=== PATIENT | male | born 1960 | race Caucasian/White ===

== ENCOUNTER 2016-08-25 11:34 | Inpatient (IN) | payer OTHER ==
[2016-08-25] VITALS (14 sets, daily range): BP systolic 111–126; BP diastolic 51–93
[~2016-08-25] VITALS: Ht 172.7 cm; Wt 87.9 kg
[~2016-08-25 11:34] MED LIST: Motrin PO
[2016-08-25 11:51] LABS: HEMATOCRIT 41.3 % (38.0-50.0); MCH 28.3 PG (29.0-34.0); MCHC 33.9 G/DL (30.0-36.0); MCV 83.4 FL (86-99); MEAN PLAT.VOLUME 9.1 uM^3 (9.0-12.4); PLATELET COUNT 321 K/uL (156-360); RBC DIS.WIDTH-CV 13.4 % (11.8-14.6); RBC DIS.WIDTH-SD 39.9 % (39-53); RED BLOOD COUNT 4.95 M/uL (4.00-5.50); WHITE BLOOD COUNT 10.1 K/uL (4.1-10.2)
[2016-08-25 11:54] LABS: BASOPHIL COUNT 0.1 K/uL (0-0.1); EOSINOPHIL (%) 1.8 % (0-5); EOSINOPHIL COUNT 0.2 K/uL (0-0.3); IMMATURE GRANULOCYTE (%) 0.3 % (0.0-0.7); IMMATURE GRANULOCYTE COUNT 0.3 K/uL; LYMPHOCYTE COUNT 3.2 K/uL (1.0-2.8); MONOCYTE (%) 8.6 % (3-12); MONOCYTE COUNT 0.9 K/uL (0-0.8); NEUTROPHIL (%) 56.4 % (45-76); NEUTROPHIL COUNT 5.7 K/uL (1.8-6.4)
[2016-08-25 12:01] LABS: INTER. NORMALIZED RATIO 1.1; PROTHROMBIN TIME 10.8 (9.2-11.2); PTT 24.6 (25-32)
[2016-08-25 12:03] LABS: AMYLASE 72 IU/L (1-118); CHLORIDE 108 mEq/L (99-109); POTASSIUM 4.3 mEq/L (3.7-5.4); SODIUM 140 mEq/L (136-147)
[2016-08-25 12:05] LABS: GLUCOSE 175 mg/dL (70-99)
[2016-08-25 12:06] LABS: ANION GAP 10 MEQ/L (2-14)
[2016-08-25 12:08] LABS: SERUM ETHYL ALCOHOL < 10 mg/dL
[2016-08-25 12:09] LABS: GFR ESTIMATE (CALCULATED) > 59 mL/min/; UREA NITROGEN (BUN) 18 mg/dL (9-23)
[2016-08-25 12:12] LABS: LIPASE 11 U/L (1.0-51.0); TROP-I INTERPRETATION NEGATIVE; TROPONIN-I < 0.01 ng/mL (0.0-0.30)
[2016-08-25 15:40] LABS: EOSINOPHIL (%) 0.1 % (0-5); IMMATURE GRANULOCYTE (%) 0.3 % (0.0-0.7); LYMPHOCYTE COUNT 1.1 K/uL (1.0-2.8); MCHC 32.6 G/DL (30.0-36.0); MEAN PLAT.VOLUME 9.3 uM^3 (9.0-12.4); MONOCYTE (%) 4.1 % (3-12); MONOCYTE COUNT 0.6 K/uL (0-0.8); NEUTROPHIL (%) 88.3 % (45-76); NEUTROPHIL COUNT 13.3 K/uL (1.8-6.4); PLATELET COUNT 245 K/uL (156-360); RBC DIS.WIDTH-CV 13.4 % (11.8-14.6); RBC DIS.WIDTH-SD 40.6 % (39-53)
[2016-08-25 15:48] LABS: BASE EXCESS -1.5 mEq/L (-3 to +3); BICARBONATE 24.3 mEq/L (22-26); CARBOXY HGB 1.5 % (0-5); COMMENTS - BLOOD GASES +C; DEVICE PB840; METHEMOGLOBIN 1.3 % (0-1.5); PCO2 44 mm Hg (35-45); PO2 131 mm Hg (80-100); SITE LR +A; pH 7.35 (7.35-7.45)
[2016-08-25 15:49] LABS: ANION GAP 7 MEQ/L (2-14); CHLORIDE 109 MEQ/L (99-109); MAGNESIUM 2.2 mg/dl (1.3-2.7); POTASSIUM 4.8 MEQ/L (3.7-5.4); SAMPLE HEMOLYSIS CHECK 0; SAMPLE ICTERIC CHECK 0; SAMPLE LIPEMIA CHECK 0; SODIUM 137 MEQ/L (136-147)
[2016-08-25 15:49] LABS: FI02 50 %; MECHANICAL RATE 14 resp/min; MODE AC; PEEP 5 CM/H20; TIDAL VOLUME 490 ML; TOTAL RESP RATE 14 resp/min
[2016-08-25 15:55] LABS: GFR ESTIMATE (CALCULATED) > 59 mL/min/; GLUCOSE 115 mg/dL (70-99); UREA NITROGEN (BUN) 15 mg/dL (9-23)
[2016-08-25 16:21] LABS: METH RESISTANT S AUREUS PCR NEGATIVE (NEGATIVE)
[2016-08-25 16:28] LABS: PROBE CHECK PASS; SPECIMEN PROCESSING CONTROL PASS
[2016-08-25 16:54] LABS: COLOR RED ((YELLOW))
[2016-08-25 16:57] LABS: ADD MIUA? YES; BILIRUBIN NEGATIVE; BLOOD LARGE; GLUCOSE (STRIP) NEGATIVE; KETONES NEGATIVE; NITRITE NEGATIVE; PROTEIN (STRIP) 30; UROBILINOGEN 0.2 MG/DL (0.2-1.0)
[2016-08-25 17:06] LABS: RED BLOOD CELLS TNTC /HPF (0-5); WHITE BLOOD CELLS 0-5 /HPF (0-5)
[2016-08-25 17:07] LABS: BACTERIA NONE SEEN /HPF; CASTS NONE SEEN /LPF; CRYSTALS NONE SEEN; EPITHELIAL CELLS NONE SEEN /HPF; MUCUS NONE SEEN /LPF; UCUL ADDED? NO
[2016-08-25 17:25] LABS: AMPHETAMINES QUANT VALUE 0 NG/ML; BARBITUATES QUANT VALUE 0 NG/ML; BENZODIAZEPINES, URINE SCREEN POSITIVE (200 ng/mL); PHENCYCLIDINE QUANT VALUE 0 NG/ML
[2016-08-25 17:39] LABS: POINT-OF-CARE METER ID UU14162636
[2016-08-25 18:33] LABS: CK-MB 244.9 ng/mL (0.0-4.9)
[2016-08-25] MEDS ORDERED: ALEVE220 MG PO (18:41)
[2016-08-25 18:58] LABS: TROP-I INTERPRETATION POSITIVE; TROPONIN-I 48.53 ng/mL (0.0-0.30)
[2016-08-25 19:58] LABS: HEMATOCRIT 41.1 % (38.0-50.0); MCH 26.9 PG (29.0-34.0); MCHC 32.1 G/DL (30.0-36.0); MCV 83.7 FL (86-99); MEAN PLAT.VOLUME 9.3 uM^3 (9.0-12.4); PLATELET COUNT 264 K/uL (156-360); RBC DIS.WIDTH-CV 13.6 % (11.8-14.6); RED BLOOD COUNT 4.91 M/uL (4.00-5.50); WHITE BLOOD COUNT 14.5 K/uL (4.1-10.2)
[2016-08-25 20:14] LABS: CREATINE KINASE 1657 IU/L (1-294); TOTAL CK 1657 IU/L (1-294)
[2016-08-25 23:50] LABS: POINT-OF-CARE METER ID UU14162636
[2016-08-26] VITALS (16 sets, daily range): BP systolic 98–137; BP diastolic 68–93
[2016-08-26 00:42] LABS: HEMATOCRIT 38.4 % (38.0-50.0); MCV 82.9 FL (86-99)
[2016-08-26 00:59] LABS: TOTAL CK 1995 IU/L (1-294)
[2016-08-26 01:07] LABS: CK-MB 202.6 ng/mL (0.0-4.9)
[2016-08-26 01:18] LABS: CREATINE KINASE 1995 IU/L (1-294)
[2016-08-26 01:18] LABS: TROP-I INTERPRETATION POSITIVE; TROPONIN-I 42.02 ng/mL (0.0-0.30)
[2016-08-26 06:23] LABS: TROP-I INTERPRETATION POSITIVE; TROPONIN-I 40.29 ng/mL (0.0-0.30)
[2016-08-26 06:25] LABS: DELETE MACHINE DIFF? YES
[2016-08-26 06:53] LABS: ABS NEUTROPHIL COUNT 12.33; ANISOCYTOSIS OCC; CK-MB 168.3 ng/mL (0.0-4.9); HEMATOCRIT 39.2 % (38.0-50.0); MCH 27.1 PG (29.0-34.0); MCHC 32.4 G/DL (30.0-36.0); MCV 83.6 FL (86-99); MEAN PLAT.VOLUME 9.7 uM^3 (9.0-12.4); PLAT.SUFFICIENCY ADEQUATE; PLATELET COUNT 269 K/uL (156-360); RBC DIS.WIDTH-CV 13.8 % (11.8-14.6); RBC DIS.WIDTH-SD 41.3 % (39-53); RED BLOOD COUNT 4.69 M/uL (4.00-5.50); USER ID CL
[2016-08-26 07:36] LABS: ANION GAP 9 MEQ/L (2-14); CHLORIDE 107 MEQ/L (99-109); GFR ESTIMATE (CALCULATED) > 59 mL/min/; GLUCOSE 154 mg/dL (70-99); HDL CHOLESTEROL 33 MG/DL (Desirable>=40); LDL CHOLESTEROL 148 mg/dL (Desirable<100); NON-HDL CHOLESTEROL 156 mg/dL (Desirable<160); POTASSIUM 4.3 MEQ/L (3.7-5.4); SAMPLE HEMOLYSIS CHECK 0; SAMPLE ICTERIC CHECK 0; SAMPLE LIPEMIA CHECK 0; SODIUM 136 MEQ/L (136-147); TOTAL CHOLESTEROL 189 mg/dL (Desirable<200); TOTAL CK 1351 IU/L (1-294); TRIGLYCERIDES 40 MG/DL (Normal: <150); UREA NITROGEN (BUN) 12 mg/dL (9-23)
[2016-08-26 07:38] LABS: CREATINE KINASE 1351 IU/L (1-294)
[2016-08-26 07:53] LABS: Estimated Average Glucose 123 mg/dL (70-123); HEMOGLOBIN A1c (GLYCOHEMOGLOB) 5.9 % HGB (Below 5.7)
[2016-08-26 12:29] LABS: POINT-OF-CARE METER ID UU14162636
[2016-08-26 13:25] LABS: TROP-I INTERPRETATION POSITIVE; TROPONIN-I 28.77 ng/mL (0.0-0.30)
[2016-08-26 17:36] LABS: POINT-OF-CARE METER ID UU13113748
[2016-08-27 00:10] VITALS: BP 101/68
[2016-08-27 04:08] VITALS: BP 105/70
[2016-08-27 06:08] LABS: POINT-OF-CARE METER ID UU13113781
[2016-08-27 07:20] VITALS: BP 110/80
[2016-08-27 07:47] LABS: HEMATOCRIT 41.3 % (38.0-50.0); MCH 26.9 PG (29.0-34.0); MCV 84.3 FL (86-99); MEAN PLAT.VOLUME 9.7 uM^3 (9.0-12.4); PLATELET COUNT 261 K/uL (156-360); RBC DIS.WIDTH-CV 13.7 % (11.8-14.6); RBC DIS.WIDTH-SD 41.9 % (39-53); WHITE BLOOD COUNT 12.6 K/uL (4.1-10.2)
[2016-08-27 07:56] LABS: ANION GAP 10 MEQ/L (2-14); CHLORIDE 107 MEQ/L (99-109); GFR ESTIMATE (CALCULATED) > 59 mL/min/; POTASSIUM 4.1 MEQ/L (3.7-5.4); SODIUM 140 MEQ/L (136-147); UREA NITROGEN (BUN) 16 mg/dL (9-23)
[2016-08-27 08:21] LABS: GLUCOSE 112 mg/dL (70-99)
[2016-08-27 11:20] VITALS: BP 114/87
[2016-08-27] MEDS ORDERED: ATORVASTATIN CA80 MG PO (14:46)
[2016-08-27] MEDS ORDERED: CARVEDILOL3.125 MG PO (14:46)
[2016-08-27] MEDS ORDERED: CLOPIDOGREL75 MG PO (14:46)
[2016-08-27] MEDS ORDERED: ASPIRIN81 M2 PO (14:46)
[2016-08-27] MEDS ORDERED: NITROSTAT0.4 MG SL (14:46)
[2016-08-27] MEDS ORDERED: LISINOPRIL2.5 MG PO (14:48)
== END 2016-08-27 16:42 | disposition home or self-care (01) | DRG 247 ==
LOC: EME → EDBD 11:34 → CATH 12:08 → EME 12:08 → 4WEST 14:31 → 2SOUTH 14:31 → 4EAST 14:31 → 2SOUTH 14:42 → 4WEST 14:44 → 4EAST 08-26 21:36
PROVIDERS: Emergency Medicine; Hospitalist; Internal Medicine; Internal Medicine Cardiovascular Disease; Internal Medicine Nephrology; Surgery
PROC: 4A023N7 Measurement of Cardiac Sampling and Pressure, Left Heart, Percutaneous Approach (ICD-10-PCS; principal; 2016-08-25)
PROC: B2111ZZ Fluoroscopy of Multiple Coronary Arteries using Low Osmolar Contrast (ICD-10-PCS; principal; 2016-08-25)
PROC: B2151ZZ Fluoroscopy of Left Heart using Low Osmolar Contrast (ICD-10-PCS; principal; 2016-08-25)
PROC: 027036Z Dilation of Coronary Artery, One Artery with Three Drug-eluting Intraluminal Devices, Percutaneous Approach (ICD-10-PCS; principal; 2016-08-25)
DX: I21.11 ST elevation (STEMI) myocardial infarction involving right coronary artery (principal); I25.5 Ischemic cardiomyopathy; I25.10 Atherosclerotic heart disease of native coronary artery without angina pectoris; I07.1 Rheumatic tricuspid insufficiency; E78.5 Hyperlipidemia, unspecified; Z87.891 Personal history of nicotine dependence
CPT/HCPCS: 36600; 71010; 80048; 80048 91; 80061; 80306 90; 81003; 82150; 82550 91; 82553; 82803; 82948; 83036; 83690; 83735; 84100; 84484; 85014; 85018; 85025; 85025 91; 85027; 85347; 85610; 85730; 86850; 86900; 86901; 87070; 87205; 87641; 93005; 93306; 94002; 94640 76; 94799; 99202; 99281; 99285; C1725; C1769; C1874; C1887; G0480; J0153; J0461; J1644; J1815; J2175; J2250; J2270; J2405; J2704; J2930; J3010; J3246

== ENCOUNTER 2016-09-18 09:56 | Day surgery (SDC) | payer OTHER ==
[~2016-09-18] VITALS: Ht 170.2 cm; Wt 82.9 kg
[~2016-09-18 09:56] MED LIST changes: +ALEVE220 MG PO; +ASPIR-LOW81 MG PO; +ASPIRIN81 M2 PO; +ATORVASTATIN CA80 MG PO; +CARVEDILOL3.125 MG PO; +CLOPIDOGREL75 MG PO; +LISINOPRIL2.5 MG PO; +LISINOPRIL5 MG PO; +NITROGLYCERIN0.4 MG SL; +NITROSTAT0.4 MG SL; +PLAVIX75 MG PO; +TYLENOL EXTRA500 MG PO
[2016-09-18 16:30] VITALS: BP 104/75
[2016-09-18 19:45] VITALS: BP 108/71
[2016-09-19 00:05] VITALS: BP 90/54
[2016-09-19 04:12] VITALS: BP 87/62
[2016-09-19 05:04] VITALS: BP 98/70
[2016-09-19 06:37] LABS: BASOPHIL COUNT 0.1 K/uL (0-0.1); EOSINOPHIL (%) 3.7 % (0-5); EOSINOPHIL COUNT 0.3 K/uL (0-0.3); HEMATOCRIT 39.6 % (38.0-50.0); IMMATURE GRANULOCYTE (%) 0.3 % (0.0-0.7); INSTRUMENT ABS NEUTROPHIL CT 5.9 K/uL; MCH 27.3 PG (29.0-34.0); MCHC 32.3 G/DL (30.0-36.0); MCV 84.4 FL (86-99); MEAN PLAT.VOLUME 9.3 uM^3 (9.0-12.4); MONOCYTE (%) 8.9 % (3-12); MONOCYTE COUNT 0.7 K/uL (0-0.8); NEUTROPHIL (%) 74.3 % (45-76); NEUTROPHIL COUNT 5.9 K/uL (1.8-6.4); NRBC (%) 0.3 /100 WBC (0-0); PLATELET COUNT 278 K/uL (156-360); RBC DIS.WIDTH-CV 13.3 % (11.8-14.6); RED BLOOD COUNT 4.69 M/uL (4.00-5.50); WHITE BLOOD COUNT 7.9 K/uL (4.1-10.2)
[2016-09-19 06:58] LABS: ANION GAP 7 MEQ/L (2-14); CHLORIDE 108 MEQ/L (99-109); GFR ESTIMATE (CALCULATED) > 59 mL/min/; GLUCOSE 98 mg/dL (70-99); POTASSIUM 4.4 MEQ/L (3.7-5.4); SAMPLE HEMOLYSIS CHECK 0; SAMPLE ICTERIC CHECK 0; SAMPLE LIPEMIA CHECK 0; SODIUM 137 MEQ/L (136-147); UREA NITROGEN (BUN) 10 mg/dL (9-23)
[2016-09-19 07:48] VITALS: BP 111/69
== END 2016-09-19 10:40 | disposition home or self-care (01) ==
LOC: CATH 09:56 → 2SOUTH 14:24 → 4EAST 16:37
PROVIDERS: Internal Medicine Cardiovascular Disease
DX: I25.10 Atherosclerotic heart disease of native coronary artery without angina pectoris (principal); I21.3 ST elevation (STEMI) myocardial infarction of unspecified site; Z98.61 Coronary angioplasty status; E78.2 Mixed hyperlipidemia; E66.9 Obesity, unspecified; Z68.30 Body mass index [BMI] 30.0-30.9, adult; Z79.82 Long term (current) use of aspirin
CPT/HCPCS: 80048; 85025; 85347; 93005; C1725; C1769; C1887; G0378; J0153; J0583; J1644; J2250; J3010; J7030; J7050